=== PATIENT | female | born 1940 | race African-American/Black ===

== ENCOUNTER 2020-08-04 11:37 | Day surgery (SDC) | payer BC, SELFPAY ==
[~2020-08-04] VITALS: Ht 162.6 cm; Wt 77.1 kg
[2020-08-04] MEDS ORDERED: fentaNYL CITRATE 250 MCG/5 ML AMP IV ONE (11:38)
[2020-08-04] MEDS ORDERED: LIDOCAINE 1% 10 MG/ML, 20 ML MDV INJ ONE (11:38)
[2020-08-04] MEDS ORDERED: MIDAZOLAM HCL 5 MG/5 ML VIAL IVP ONE (11:38)
[2020-08-04] MEDS ORDERED: LR 1,000 ML IV.SOLN IV ONE (11:38)
[2020-08-04] MEDS ORDERED: LIDOCAINE/EPI 2% 1:100000 20 ML VIAL INJ ONE (11:38)
[2020-08-04] MEDS ORDERED: PROPOFOL 200MG/ 20ML VIAL (DIPRIVAN) IV ONE (11:38)
[2020-08-04] MEDS ORDERED: CEFAZOLIN 2 GM IVPB PREMIX 50 ML IV ONE (11:38)
[2020-08-04] MEDS ORDERED: HYDROmorphone 1 MG INJ. 1 MG/ML AMPUL IVP PRN ×2 (14:30)
[2020-08-04] MEDS ORDERED: hydrALAZINE HCL 20 MG/ML VIAL IVP PRN (14:30)
[2020-08-04] MEDS ORDERED: LR 1,000 ML IV SCH (14:30)
[2020-08-04] MEDS ORDERED: MEPERIDINE HCL/PF 25 MG/ML DISP.SYRIN IVP PRN (14:30)
[2020-08-04] MEDS ORDERED: LABETALOL 100 MG/ 20ML VIAL IVP PRN (14:30)
[2020-08-04] MEDS ORDERED: ONDANSETRON HCL 4 MG/2 ML VIAL IVP PRN (14:30)
[2020-08-04 14:33] VITALS: BP_SYST 130
== END 2020-08-04 15:00 | disposition home or self-care (01) ==
LOC: SDS 11:37 → SMU 11:39 → SDS 15:00
PROVIDERS: ATTEND Orthopaedic Surgery
DX: M25.441 Effusion, right hand (principal); I10 Essential (primary) hypertension; M79.89 Other specified soft tissue disorders; E78.00 Pure hypercholesterolemia, unspecified; M19.041 Primary osteoarthritis, right hand; E03.9 Hypothyroidism, unspecified; Z79.899 Other long term (current) drug therapy; Z20.828 Contact with and (suspected) exposure to other viral communicable diseases
CPT/HCPCS: 26080; 87070 ×2; 87075; J0690; J2001; J2250; J2704; J3010; J7120; U0003